=== PATIENT | female | born 1980 | race American Indian/Alaskan Native ===

== ENCOUNTER 2017-10-21 15:13 | Emergency (ER) | payer MEDICAID ==
[~2017-10-21] VITALS: Ht 149.9 cm; Wt 81.6 kg
[2017-10-21 15:20] VITALS: BP_SYST 139
--- NOTE | 2017-10-21 15:23 | NUR ---
Patient to ER bed 04 to gown for evaluation. Side rails up.
--- NOTE | 2017-10-21 15:25 | NUR ---
Patient to ER via triage with c/o left knee pain, and left leg "feeling numb" since 10/18/17. Patient is awake, alert and oriented in no acute distress, vital signs stable, respirations even and unlabored, skin warm and dry to touch. Awaiting evaluation by ER MD/SEMICONDUCTOR LAB TECHNICIAN, will continue to observe and assess.
--- NOTE | 2017-10-21 15:30 | NUR ---
Valerie [employer] at bedside to evaluate patient.
[2017-10-21] MEDS ORDERED: IBUPROFEN 800 MG TABLET PO ONE (15:45)
[2017-10-21] MEDS ORDERED: PREDNISONE 20 MG TABLET PO ONE (15:45)
[2017-10-21 16:00] VITALS: BP_SYST 130
--- NOTE | 2017-10-21 16:00 | NUR ---
Patient given written and verbal discharge instructions and verbalizes understanding. ER MD discussed with patient the results and treatment provided. Patient in stable condition. ID arm band removed. Rx of Motrin, Medrol, Soma given. Patient educated on pain management and to follow up with PMD. Pain Scale 2. Opportunity for questions provided and answered. Medication side effect fact sheet provided.
== END 2017-10-21 16:00 | disposition home or self-care (01) ==
LOC: SED 15:13
DX: M54.32 Sciatica, left side (principal); R03.0 Elevated blood-pressure reading, without diagnosis of hypertension
CPT/HCPCS: 99283; J7512

== ENCOUNTER 2019-01-11 14:35 | Emergency (ER) | payer MEDICAID ==
[~2019-01-11] VITALS: Ht 154.9 cm; Wt 78.0 kg
[2019-01-11 14:54] VITALS: BP_SYST 130
== END 2019-01-11 15:55 | disposition home or self-care (01) ==
LOC: SED 14:35
DX: S80.01XA Contusion of right knee, initial encounter (principal); S80.02XA Contusion of left knee, initial encounter; W18.39XA Other fall on same level, initial encounter; Y93.89 Activity, other specified; Y92.89 Other specified places as the place of occurrence of the external cause; Y99.8 Other external cause status
CPT/HCPCS: 99283

== ENCOUNTER 2021-01-24 11:09 | Emergency (ER) | payer MEDICAID ==
[~2021-01-24] VITALS: Ht 149.9 cm; Wt 88.0 kg
[2021-01-24 11:10] VITALS: BP_SYST 128
--- NOTE | 2021-01-24 11:10 | NUR ---
ASSISTED TO ROOM #8 VIA WHEELCHAIR AND PLACED IN BED, TRIAGED. REPORT GIVEN TO JACKELYN
--- NOTE | 2021-01-24 11:15 | NUR ---
Pt walked in to ER with c/o right leg pain, 12/31, reports h/o sciatica. V/S stable, no acute distress noted.
--- NOTE | 2021-01-24 11:28 | NUR ---
ER Dr. Hammer at bedside examining patient.
[2021-01-24] MEDS ORDERED: traMADol HCL HCL 50 MG TABLET (ULTRAM) PO ONE (11:30)
[2021-01-24] MEDS ORDERED: NAPR-688 PO (12:25)
[2021-01-24] MEDS ORDERED: TRAM50TA PO (12:25)
--- NOTE | 2021-01-24 12:40 | NUR ---
Radiology at bedside for x-ray
--- NOTE | 2021-01-24 13:05 | NUR ---
Patient given written and verbal discharge instructions and verbalizes understanding. ER MD discussed with patient the results and treatment provided. Patient in stable condition. ID arm band removed. Rx of Naproxen and Tramadol given. Patient educated on pain management and to follow up with PMD. Pain Scale 0. Opportunity for questions provided and answered. Medication side effect fact sheet provided.
[2021-01-24 13:27] VITALS: BP_SYST 128
== END 2021-01-24 13:05 | disposition home or self-care (01) ==
LOC: SED 11:09
DX: M54.31 Sciatica, right side (principal); Z79.899 Other long term (current) drug therapy
CPT/HCPCS: 73502; 99283

== ENCOUNTER 2021-01-28 10:57 | Emergency (ER) | payer MEDICAID ==
[~2021-01-28] VITALS: Ht 149.9 cm; Wt 88.0 kg
[2021-01-28 10:57] VITALS: BP_SYST 136
[~2021-01-28 10:57] MED LIST: NAPR-688 PO; TRAM50TA PO
--- NOTE | 2021-01-28 11:00 | NUR ---
BROUGHT BACK TO BED #8 VIA WHEELCHAIR, PLACED IN BED AND TRIAGED. REPORT GIVEN TO ROSALIE
--- NOTE | 2021-01-28 11:10 | NUR ---
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
--- NOTE | 2021-01-28 11:13 | NUR ---
DR CAMARGO TO ROOM TO EVALUATE PT.
--- NOTE | 2021-01-28 11:27 | NUR ---
LAB AT THE BEDSIDE FOR BLOOD DRAW
[2021-01-28 11:54] LABS: BASOPHILS # (AUTO) 0.1 K/uL (0.0-0.2); BASOPHILS % (AUTO) 0.9 % (0.0-2.0); EOSINOPHILS # (AUTO) 0.2 K/uL (0.0-0.4); EOSINOPHILS % (AUTO) 3.5 % (0.0-4.0); HEMATOCRIT 38.5 % (36-48); HEMOGLOBIN 12.9 g/dL (12.0-16.0); LYMPHOCYTES # (AUTO) 2.2 K/uL (1.0-5.5); LYMPHOCYTES % (AUTO) 35.8 % (20.5-51.5); MEAN CORPUSCULAR HEMOGLOBIN 29 pg (27-31); MEAN CORPUSCULAR HGB CONC 34 % (32-36); MEAN CORPUSCULAR VOLUME 86 fL (79.0-98.0); MONOCYTES # (AUTO) 0.5 K/uL (0.0-1.0); MONOCYTES % (AUTO) 7.9 % (1.7-9.3); NEUTROPHILS # (AUTO) 3.2 K/uL (1.8-7.7); NEUTROPHILS % (AUTO) 51.9 % (40.0-70.0); PLATELET COUNT (AUTO) 261 K/uL (130-430); RED BLOOD CELL COUNT(AUTO) 4.47 MIL/uL (4.2-6.2); RED CELL DISTRIBUTION WIDTH 14.3 % (9.0-15.0); WHITE BLOOD COUNT (AUTO) 6.1 K/uL (4.8-10.8)
[2021-01-28 11:57] LABS: ANION GAP 12 (5-15); CALCIUM 8.4 mg/dL (8.4-11.0); CHLORIDE 98 mmol/L (98-107); GLUCOSE 104 mg/dL (70-99); POTASSIUM 3.1 mmol/L (3.5-5.1); SODIUM SERUM 137 mmol/L (136-145); UREA NITROGEN, BLOOD 9 mg/dL (8-21)
[2021-01-28 11:58] LABS: PROTHROMBIN TIME 10.3 SECS (9.5-12.5)
[2021-01-28 12:02] LABS: ALANINE AMINOTRANSFERASE 43 U/L (12-78); ALBUMIN 3.9 g/dL (3.4-4.8); ASPARTATE AMINOTRANSFERASE 45 U/L (10-37); TOTAL BILIRUBIN 0.4 mg/dL (0.0-1.0); URIC ACID 6.6 mg/dL (2.4-7.0)
--- NOTE | 2021-01-28 12:14 | NUR ---
PORTABLE X-RAY AT THE BEDSIDE
[2021-01-28 12:18] LABS: GFR AFRICAN AMERICAN 143 mL/min (>90)
[2021-01-28 12:20] LABS: C-REACTIVE PROTEIN QUANT < 0.2 mg/dL (0-0.5)
[2021-01-28 12:40] LABS: ERYTHROCYTE SEDIMENTATION RATE 16 MM/HR (0-20)
--- NOTE | 2021-01-28 12:50 | NUR ---
PT SLEEPING IN GURNEY, EASILY ARROSABLE TO SOUND, AAOX4, NO DISTRESS
[2021-01-28 13:13] VITALS: BP_SYST 136
--- NOTE | 2021-01-28 13:14 | NUR ---
Patient given written and verbal discharge instructions and verbalizes understanding. Given copies of tests performed during visit. Patient is awake, alert and oriented. Ambulatory with steady gait. Refuses offer of [facility] placement. Given list of available shelters in surrounding areas.
--- NOTE | 2021-01-28 13:14 | NUR ---
Patient given written and verbal discharge instructions and verbalizes understanding. ER MD discussed with patient the results and treatment provided. Patient in stable condition. ID arm band removed. Rx of MOTRIN AND NORCO given. Patient educated on pain management and to follow up with PMD. Pain Scale 0/10. Opportunity for questions provided and answered. Medication side effect fact sheet provided.
== END 2021-01-28 13:14 | disposition home or self-care (01) ==
LOC: SED 10:57
DX: M25.562 Pain in left knee (principal); Z79.899 Other long term (current) drug therapy
CPT/HCPCS: 36415; 73560-TC; 80053; 84550; 84703; 85025; 85610-TC; 85651-TC; 85730-TC; 86140; 99284